=== PATIENT | female | born 1980 | race Caucasian/White ===

== ENCOUNTER 2024-12-06 10:06 | Outpatient (CLI) | payer BC ==
[2024-12-06 11:20] LABS: #Basophils 0.04 10x3/uL (0.0-0.2); #Eosinophils 0.12 10x3/uL (0.0-0.5); #Monocytes 0.54 10x3/uL (0.0-1.1); #Neutrophils 2.97 10x3/uL (1.5-8.4); %Monocytes 13.5 % (0.0-10.0); %Neutrophils 74.2 % (40.0-75.0); Hematocrit 37.1 % (34.9-44.5); Hemoglobin 11.7 g/dL (12.0-15.5); Mean Corpuscular HGB CONC 31.5 g/dL (32.0-36.0); Mean Corpuscular Hemoglobin 28.5 pg (27.0-33.0); Mean Corpuscular Volume 90.3 fL (81.6-98.3); Platelet Count 356 10x3/uL (150-450); RBC Distribution Width 12.5 % (11.5-14.5); Red Blood Cell (RBC) Count 4.11 10x6/uL (3.90-5.03)
[2024-12-06 11:59] LABS: ALT (SGPT) 169 U/L (8-55); AST (SGOT) 42 U/L (5-34); Albumin 4.4 g/dL (3.5-5.0); Alkaline Phosphatase 192 U/L (40-110); Anion Gap 12 mmol/L (10-20); BUN (Urea Nitrogen) 18 mg/dL (7.0-18.7); Bilirubin, Total 0.5 mg/dL (0.2-1.2); Calc. Creatinine Clearance 0 mL/min (70-130); Calcium 9.7 mg/dL (7.8-10.44); Carbon Dioxide 26 mmol/L (22-29); Chloride 108 mmol/L (98-107); Estimated GFR 106; Globulin 2.4 g/dL (2.4-3.5); Glucose 83 mg/dL (70-105); Potassium 4.4 mmol/L (3.5-5.1); Protein, Total 6.8 g/dL (6.0-8.3); Sodium 142 mmol/L (136-145)
== END 2024-12-06 10:07 | disposition home or self-care (01) ==
LOC: CSHLAB 10:06
PROVIDERS: ATTEND Specialist
DX: Z01.812 Encounter for preprocedural laboratory examination (principal); K80.20 Calculus of gallbladder without cholecystitis without obstruction
CPT/HCPCS: 80053; 85025

== ENCOUNTER 2024-12-12 05:50 | Inpatient (IN) | payer BC ==
[2024-12-06 10:26] VITALS: BMI 27.4
[2024-12-12] MEDS ORDERED: CEFAZOLIN 2 GM VIAL ONE (06:34)
[2024-12-12] MEDS ORDERED: Bupivacaine/Epinephrine 0.25% 30 ML VIAL ONE (06:35)
[2024-12-12] MEDS ORDERED: Ketorolac Tromethamine 30 MG (1 mL) VIAL ONE (06:56)
[2024-12-12] MEDS ORDERED: Acetaminophen 500 MG TAB ONE (06:57)
[2024-12-12] MEDS ORDERED: Lidocaine 1% PF 5 ML VIAL ONE (07:12)
[2024-12-12] MEDS ORDERED: Rocuronium Bromide 10 MG/ML (10ML VIAL) ONE (07:12)
[2024-12-12] MEDS ORDERED: PROPOFOL 20 ML ONE (07:12)
[2024-12-12] MEDS ORDERED: Ondansetron PF 4 MG/2 ML Vial ONE (07:12)
[2024-12-12] MEDS ORDERED: fentaNYL 50 mcg/mL 1 mL Vial ONE ×4 (07:12→11:19)
[2024-12-12] MEDS ORDERED: Iopamidol 30 ML ONE (07:34)
[2024-12-12] MEDS ORDERED: ePHEDrine Sulfate 50 MG/10 ML VIAL ONE (08:54)
[2024-12-12] MEDS ORDERED: SUGAMMADEX SODIUM 200 MG/2 ML VIAL ONE ×2 (09:24→09:27)
[2024-12-12] MEDS ORDERED: HYDROcodone/Acetaminophen 10/325 mg Tablet PO PRN (12:21)
[2024-12-12] MEDS ORDERED: Dextrose 5% in Water 1,000 ML IV PRN (12:21)
[2024-12-12] MEDS ORDERED: Ipratropium/Albuterol 3 ML NEB NEB PRN (12:21)
[2024-12-12] MEDS ORDERED: Morphine 2 MG/ML VIAL SLOW IVP PRN (12:21)
[2024-12-12] MEDS ORDERED: Dextrose 50% Abboject 50 ML SYRINGE SLOW IVP PRN (12:21)
[2024-12-12] MEDS ORDERED: hydrALAZINE 20 MG/ML VIAL SLOW IVP PRN (12:21)
[2024-12-12] MEDS ORDERED: Glucagon 1 MG/ML KIT IM PRN (12:21)
[2024-12-12] MEDS: Ketorolac Tromethamine 30 MG (1 mL) VIAL IVP SCH (13:06)
[2024-12-12] MEDS: Lactated Ringer's 1,000 ML IV SCH (13:38)
[2024-12-12] MEDS: Gabapentin 300 MG CAP PO SCH (15:46)
[2024-12-12] MEDS: Acetaminophen 325 MG TAB PO PRN (15:50)
[2024-12-12] MEDS: Ondansetron PF 4 MG/2 ML Vial IVP PRN (17:35)
[2024-12-12] MEDS: Calcium Carbonate 500 MG ChewTAB PO PRN (17:35)
[2024-12-12] MEDS: Famotidine 20 MG TAB PO SCH (20:03)
[2024-12-12] MEDS: Famotidine/PF 20 mg/2ml Vial SLOW IVP SCH (20:03)
[2024-12-12] MEDS: Mag-Al 1200 mg/1200 mg/30 ML UDCUP PO PRN (21:51)
[2024-12-13 04:52] LABS: #Basophils 0.03 10x3/uL (0.0-0.2); #Eosinophils 0.03 10x3/uL (0.0-0.5); #Monocytes 0.76 10x3/uL (0.0-1.1); #Neutrophils 4.95 10x3/uL (1.5-8.4); %Basophils 0.5 % (0.0-2.0); %Eosinophils 0.5 % (0.0-6.0); %Lymphocytes 4.3 % (18.0-47.0); %Monocytes 12.6 % (0.0-10.0); %Neutrophils 81.8 % (40.0-75.0); Hematocrit 29.9 % (34.9-44.5); Hemoglobin 9.8 g/dL (12.0-15.5); Mean Corpuscular HGB CONC 32.8 g/dL (32.0-36.0); Mean Corpuscular Hemoglobin 29.7 pg (27.0-33.0); Mean Corpuscular Volume 90.6 fL (81.6-98.3); Mean Platelet Volume 9.9 fL (7.4-10.4); Platelet Count 244 10x3/uL (150-450); RBC Distribution Width 12.5 % (11.5-14.5); White Blood Cell (WBC) Count 6.05 10x3/uL (3.5-10.5)
[2024-12-13 05:10] LABS: ALT (SGPT) 48 U/L (8-55); AST (SGOT) 26 U/L (5-34); Albumin 3.4 g/dL (3.5-5.0); Alkaline Phosphatase 106 U/L (40-110); Anion Gap 11 mmol/L (10-20); BUN (Urea Nitrogen) 10 mg/dL (7.0-18.7); Bilirubin, Total 0.6 mg/dL (0.2-1.2); Calc. Creatinine Clearance 116 mL/min (70-130); Calcium 9.2 mg/dL (7.8-10.44); Carbon Dioxide 26 mmol/L (22-29); Chloride 109 mmol/L (98-107); Estimated GFR 109; Globulin 2.3 g/dL (2.4-3.5); Glucose 87 mg/dL (70-105); Potassium 3.8 mmol/L (3.5-5.1); Protein, Total 5.7 g/dL (6.0-8.3); Sodium 142 mmol/L (136-145)
[2024-12-13] MEDS ORDERED: Ondansetron PF 4 MG/2 ML Vial ONE ×2 (07:55→08:27)
[2024-12-13] MEDS ORDERED: Glucagon 1 MG/ML KIT ONE (07:59)
[2024-12-13] MEDS ORDERED: Indomethacin 50 MG SUPP ONE (07:59)
[2024-12-13] MEDS ORDERED: PROPOFOL 20 ML ONE (08:03)
[2024-12-13] MEDS ORDERED: fentaNYL 50 mcg/mL 1 mL Vial ONE ×2 (08:04→09:20)
[2024-12-13] MEDS ORDERED: Rocuronium Bromide 10 MG/ML (10ML VIAL) ONE (08:08)
[2024-12-13] MEDS ORDERED: Dexamethasone 4 mg/ml Vial ONE (08:27)
[2024-12-13] MEDS ORDERED: SUGAMMADEX SODIUM 200 MG/2 ML VIAL ONE (08:27)
[2024-12-13] MEDS ORDERED: ePHEDrine Sulfate 50 MG/10 ML VIAL ONE (08:28)
[2024-12-13] MEDS ORDERED: FINGOLIMOD HCL 0.5 MG PO SCH (09:00)
[2024-12-13] MEDS: Promethazine HCl 25 MG/ML VIAL IM PRN (11:08)
[2024-12-13] MEDS: Rosuvastatin 10 MG TAB PO SCH (11:19)
[2024-12-13] MEDS: Loratadine 10 MG TAB PO SCH (11:19)
[2024-12-14 08:21] VITALS: BP 138/59; TEMP 99.3
[2024-12-14 10:15] LABS: #Basophils Less than 0.03 10x3/uL (0.0-0.2); #Eosinophils Less than 0.03 10x3/uL (0.0-0.5); #Monocytes 0.74 10x3/uL (0.0-1.1); %Basophils 0.2 % (0.0-2.0); %Eosinophils 0.5 % (0.0-6.0); %Lymphocytes 5.9 % (18.0-47.0); %Monocytes 16.7 % (0.0-10.0); %Neutrophils 76.5 % (40.0-75.0); Hematocrit 29.3 % (34.9-44.5); Hemoglobin 9.5 g/dL (12.0-15.5); Mean Corpuscular HGB CONC 32.4 g/dL (32.0-36.0); Mean Corpuscular Hemoglobin 29.5 pg (27.0-33.0); Mean Platelet Volume 10.3 fL (7.4-10.4); Platelet Count 229 10x3/uL (150-450); RBC Distribution Width 12.5 % (11.5-14.5); Red Blood Cell (RBC) Count 3.22 10x6/uL (3.90-5.03); White Blood Cell (WBC) Count 4.44 10x3/uL (3.5-10.5)
[2024-12-14 10:32] LABS: ALT (SGPT) 35 U/L (Less than 34); AST (SGOT) 23 U/L (11-34); Albumin 3.6 g/dL (3.1-4.5); Alkaline Phosphatase 96 U/L (40-110); Anion Gap 10 mmol/L (10-20); BUN (Urea Nitrogen) 12 mg/dL (7.0-18.7); Bilirubin, Total 0.4 mg/dL (0.3-1.2); Calc. Creatinine Clearance 120 mL/min (70-130); Calcium 9.1 mg/dL (7.8-10.44); Carbon Dioxide 26 mmol/L (22-29); Chloride 108 mmol/L (98-107); Estimated GFR 110; Globulin 2.3 g/dL (2.4-3.5); Glucose 101 mg/dL (70-105); Potassium 3.2 mmol/L (3.5-5.1); Protein, Total 5.9 g/dL (6.0-8.3); Sodium 141 mmol/L (136-145)
== END 2024-12-14 11:18 | disposition home or self-care (01) | DRG 419 ==
LOC: CSHSDC 05:50 → CSHTELE 12:23
PROVIDERS: ADMIT Specialist; ATTEND Specialist
PROC: 0FT44ZZ Resection of Gallbladder, Percutaneous Endoscopic Approach (ICD-10-PCS; principal; 2024-12-12)
PROC: 8E0W4CZ Robotic Assisted Procedure of Trunk Region, Percutaneous Endoscopic Approach (ICD-10-PCS; 2024-12-12)
PROC: BF121ZZ Fluoroscopy of Gallbladder using Low Osmolar Contrast (ICD-10-PCS; 2024-12-12)
PROC: 0F798DZ Dilation of Common Bile Duct with Intraluminal Device, Via Natural or Artificial Opening Endoscopic (ICD-10-PCS; 2024-12-13)
DX: K80.20 Calculus of gallbladder without cholecystitis without obstruction (principal); E78.5 Hyperlipidemia, unspecified; R74.01 Elevation of levels of liver transaminase levels; Z98.890 Other specified postprocedural states; Z82.49 Family history of ischemic heart disease and other diseases of the circulatory system; Z79.899 Other long term (current) drug therapy
CPT/HCPCS: 36415; 47532; 80053; 85025; 88304; 94760; C1725; C1889; C1894; J1100; J1611; J1885; J2405; J2550; J2704; J3010; J7120; Q9967; S2900